=== PATIENT | male | born 1990 | race Two or more races ===

== ENCOUNTER 2017-05-17 20:54 | Emergency (ER) | payer SELFPAY ==
[2017-05-17 21:48] LABS: BASO % 1 % (0-3); EOS % 1 % (0-3); HEMATOCRIT 44.8 % (39.0-53.0); HEMOGLOBIN 15.5 g/dL (13.0-17.5); LYMPH # 2.2 x10^3/uL (1.0-4.8); LYMPH % 36 % (24-48); MEAN CORPUSCULAR HEMOGLOBIN 31 pg (25-35); MEAN CORPUSCULAR HGB CONC 35 g/dL (31-37); MEAN CORPUSCULAR VOLUME 91 fL (79-100); MONO # 0.4 x10^3/uL (0.0-1.1); MONO % 6 % (0-9); NEUT # 3.5 x10^3uL (1.8-7.7); NEUT % 57 % (31-73); PLATELET COUNT 290 x10^3/uL (140-400); RED BLOOD COUNT 4.94 x10^6/uL (4.30-5.70); RED CELL DISTRIBUTION WIDTH 13.4 % (11.5-14.5); WHITE BLOOD COUNT 6.1 x10^3/uL (4.0-11.0)
[2017-05-17 21:50] VITALS: BP 112/62
--- NOTE | 2017-05-17 22:26 | PHYS DOC ---
Past History Additional Past Medical Histor: unable to obtain due to patient not being cooperative Additional Past Surgical Histo: unable to obtain due to patient not being cooperative Additional Smoking Information: unable to obtain due to patient not being cooperative Additional Alcohol Information: unable to obtain due to patient not being cooperative Social History Narrative: unable to obtain due to patient not being cooperative Adult General Chief Complaint Chief Complaint: ALCOHOL INTOXICATION HPI HPI Hector's history was limited due to language barrier and poor cooperation. Environmental Associate was used during this encounter Patient is a 26 year old M who presents with aggressive behavior. Has a states that he had 3 beers this evening and has not used marijuana or any other recreational drugs. He states that occasionally he has these "fits". He refuses to answer most questions however the package lift operator states that he is speaking clearly, using appropriate words for the situation, and answering questions appropriately. Upon arrival he states that he would like to leave as soon as possible. He states frequently that he does not need to be in the hospital. Review of Systems Review of Systems Unable to obtain due to poor cooperation Family History Family History Unable to obtain due to poor cooperation Current Medications Current Medications Unable to obtain due to poor cooperation Allergies Allergies Unable to obtain due to poor cooperation Physical Exam Physical Exam Exam limited due to poor cooperation Constitutional: Well developed, well nourished, no acute distress, HENT: Normocephalic, atraumatic, Eyes: EOMI, conjunctiva normal, no discharge. [] Neck: Normal range of motion, no tenderness, supple, no stridor. [] Cardiovascular:Heart rate regular rhythm, Lungs & Thorax: Bilateral breath sounds clear to auscultation [] Abdomen: Bowel sounds normal, soft, no tenderness, no masses, no pulsatile masses. [] Skin: Warm, dry, no erythema, no rash. [] Bite gloria on the right biceps. Hector states that these were self-inflicted. Extremities: No tenderness, no cyanosis, no clubbing, ROM intact, no edema. [] Neurologic: Alert and oriented X 3, normal motor function, normal sensory function, no focal deficits noted. [] Psychologic: Affect normal, judgement normal, mood normal. [] Current Patient Data Vital Signs Please review nursing documentation for specifics Lab Results Laboratory Tests Test 05/17/17 21:05 White Blood Count 6.1 x10^3/uL (4.0-11.0) Red Blood Count 4.94 x10^6/uL (4.30-5.70) Hemoglobin 15.5 g/dL (13.0-17.5) Hematocrit 44.8 % (39.0-53.0) Mean Corpuscular Volume 91 fL (79-100) Mean Corpuscular Hemoglobin 31 pg (25-35) Mean Corpuscular Hemoglobin Concent 35 g/dL (31-37) Red Cell Distribution Width 13.4 % (11.5-14.5) Platelet Count 290 x10^3/uL (140-400) Neutrophils (%) (Auto) 57 % (31-73) Lymphocytes (%) (Auto) 36 % (24-48) Monocytes (%) (Auto) 6 % (0-9) Eosinophils (%) (Auto) 1 % (0-3) Basophils (%) (Auto) 1 % (0-3) Neutrophils # (Auto) 3.5 x10^3uL (1.8-7.7) Lymphocytes # (Auto) 2.2 x10^3/uL (1.0-4.8) Monocytes # (Auto) 0.4 x10^3/uL (0.0-1.1) Eosinophils # (Auto) 0.0 x10^3/uL (0.0-0.7) Basophils # (Auto) 0.0 x10^3/uL (0.0-0.2) EKG EKG Unable to obtain due to poor cooperation Radiology/Procedures Radiology/Procedures Unable to obtain due to poor cooperation Course & Med Decision Making Course & Med Decision Making Pertinent Labs and Imaging studies reviewed. (See chart for details) Environmental Associate was used during this encounter. Based on evaluations using the package lift operator it was a's mental status and improved during his stay in the emergency room. He did wish to leave AGAINST MEDICAL ADVICE prior to complete went of his evaluation. It was explained that he could have a condition that may cause him permanent disability or that may be found and treated if he was to stay and receive a complete evaluation. He expressed understanding to the package lift operator. The package lift operator states that to the best of his ability was shant understands these facts. He did sign the AMA paperwork and did leave AGAINST MEDICAL ADVICE accompanied by family Madalyn Disclaimer Dragon Disclaimer This chart was dictated in whole or in part using Voice Recognition software in a busy, high-work load, and often noisy Emergency Department environment. It may contain unintended and wholly unrecognized errors or omissions. Departure Departure: Disposition: 07 AGAINST MEDICAL ADVICE IRENE BUCHANAN MD May 17, 2017 22:26
== END 2017-05-17 22:00 | disposition left against medical advice (07) ==
LOC: ER 20:54
DX: R46.89 Other symptoms and signs involving appearance and behavior (principal); F10.129 Alcohol abuse with intoxication, unspecified
CPT/HCPCS: 36415; 85025; 99284

== ENCOUNTER 2017-09-08 14:46 | Emergency (ER) | payer SELFPAY ==
[2017-09-08] MEDS ORDERED: FLUT9.9S NS (16:55)
--- NOTE | 2017-09-08 16:55 | PHYS DOC ---
Past History Past Medical History: No Pertinent History Additional Past Medical Histor: unable to obtain due to patient not being cooperative Past Surgical History: Other Additional Past Surgical Histo: unable to obtain due to patient not being cooperative Additional Smoking Information: 1 pack a day Alcohol Use: Rarely Drug Use: Marijuana Adult General Chief Complaint Chief Complaint: FATIGUE HPI HPI Patient is a 26 year old M who presents with generalized symptoms including nasal congestion and sore throat. He describes the symptoms as been present over the past 3 or 4 days. He also feels generalized fatigue. He describes tingling in back of his head. He has no other associated symptoms. He has no other exacerbating or alleviating factors. Review of Systems Review of Systems Constitutional: Denies fever or chills [] Eyes: Denies change in visual acuity, redness, or eye pain [] HENT: Negative except history of present illness Respiratory: Denies cough or shortness of breath [] Cardiovascular: No additional information not addressed in HPI [] GI: Denies abdominal pain, nausea, vomiting, bloody stools or diarrhea [] : Denies dysuria or hematuria [] Musculoskeletal: Denies back pain or joint pain [] Integument: Denies rash or skin lesions [] Neurologic: Denies headache, focal weakness or sensory changes [] Endocrine: Denies polyuria or polydipsia [] All other systems were reviewed and found to be within normal limits, except as documented in this note. Family History Family History Noncontributory Current Medications Current Medications No current medications Physical Exam Physical Exam Constitutional: Well developed, well nourished, no acute distress, non-toxic appearance. [] HENT: Normocephalic, atraumatic, mild to moderate nasal erythema and edema mild pharyngeal erythema Eyes: EOMI, conjunctiva normal, no discharge. [] Neck: Normal range of motion, no tenderness, supple, no stridor. [] Cardiovascular:Heart rate regular rhythm, no murmur [] Lungs & Thorax: Bilateral breath sounds clear to auscultation [] Abdomen: Bowel sounds normal, soft, no tenderness, no masses, no pulsatile masses. [] Skin: Warm, dry, no erythema, no rash. [] Extremities: No tenderness, no cyanosis, no clubbing, ROM intact, no edema. [] Neurologic: Alert and oriented X 3, normal motor function, normal sensory function, no focal deficits noted. [] Psychologic: Affect normal, judgement normal, mood normal. [] Current Patient Data Vital Signs Vital Signs Date Time Temp Pulse Resp B/P (MAP) Pulse Ox O2 Delivery O2 Flow Rate FiO2 09/08/17 15:03 98.5 110 20 99 Room Air EKG EKG [] Radiology/Procedures Radiology/Procedures [] Course & Med Decision Making Course & Med Decision Making Pertinent Labs and Imaging studies reviewed. (See chart for details) [] Dragon Disclaimer Dragon Disclaimer This electronic medical record was generated, in whole or in part, using a voice recognition dictation system. Departure Departure: Impression: Primary Impression: Upper respiratory infection, viral Disposition: HOME, SELF-CARE Condition: STABLE Referrals: PCP,ONEYDA (PCP) Patient Instructions: Upper Respiratory Infection, Adult Additional Instructions: Johnathan was seen in the emergency department for generalized symptoms. No emergency medical condition was found on history or physical exam. He is unable symptoms most consistent with a viral infection likely a respiratory infection. Is advised to use nasal saline rinses regularly and was given a prescription for Flonase nose spray. He is also advised consider using lidocaine patches to manage his symptoms. He is advised follow-up with his primary care doctor as needed for further management. Scripts Fluticasone Propionate (Flonase Allergy Relief) 9.9 Ml Thida.susp 1 SPRAYS NS BID for 7 Days, BOTTLE Prov: IRENE BUCHANAN MD 09/08/17 IRENE BUCHANAN MD Sep 08, 2017 16:55
[2017-09-08 17:02] VITALS: BP 137/90
== END 2017-09-08 17:03 | disposition home or self-care (01) ==
LOC: ER 14:46
DX: J06.9 Acute upper respiratory infection, unspecified (principal); B97.89 Other viral agents as the cause of diseases classified elsewhere; R53.83 Other fatigue; F17.210 Nicotine dependence, cigarettes, uncomplicated; F12.10 Cannabis abuse, uncomplicated
CPT/HCPCS: 99283

== ENCOUNTER 2018-01-13 11:14 | Emergency (ER) | payer SELFPAY ==
[~2018-01-13] VITALS: Ht 162.6 cm; Wt 53.1 kg
[~2018-01-13 11:14] MED LIST: FLUT9.9S NS
--- NOTE | 2018-01-13 11:43 | PHYS DOC ---
Past History Past Medical History: No Pertinent History Additional Past Medical Histor: unable to obtain due to patient not being cooperative Past Surgical History: Other Additional Past Surgical Histo: unable to obtain due to patient not being cooperative Alcohol Use: Rarely Drug Use: Marijuana Adult General Chief Complaint Chief Complaint: CHEST WALL PAIN [facility] HPI 27-year-old male presents with 3 day history of chest wall pain. The patient speaks German as a second language, so his understanding is somewhat limited. He tells me that the pain started in his left lateral chest on Saturday and today both of his lateral pectoral areas are sore. 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 He is worked there for about a year. It is unclear if he didn't anything extra strenuous on Saturday. He feels as though his left pec is slightly swollen. Both of his pectoralis muscles are tender to the touch. Patient denies shortness of breath or diaphoresis. Review of Systems Review of Systems Constitutional: Denies fever or chills [] Eyes: Denies change in visual acuity, redness, or eye pain [] HENT: Denies nasal congestion or sore throat [] Respiratory: Denies cough or shortness of breath [] Cardiovascular: No additional information not addressed in HPI [] GI: Denies abdominal pain, nausea, vomiting, bloody stools or diarrhea [] : Denies dysuria or hematuria [] Musculoskeletal: chest muscle pain [] Integument: Denies rash or skin lesions [] Neurologic: Denies headache, focal weakness or sensory changes [] Endocrine: Denies polyuria or polydipsia [] All other systems were reviewed and found to be within normal limits, except as documented in this note. Allergies Allergies Allergies Coded Allergies Type Severity Reaction Last Updated Verified aspirin Allergy Unknown 09/08/17 Yes Physical Exam Physical Exam Constitutional: Well developed, well nourished, no acute distress, non-toxic appearance. [] HENT: Normocephalic, atraumatic, bilateral external ears normal, oropharynx moist, no oral exudates, nose normal. [] Eyes: PERRLA, EOMI, conjunctiva normal, no discharge. [] Neck: Normal range of motion, no tenderness, supple, no stridor. [] Cardiovascular:Heart rate regular rhythm, no murmur [] Lungs & Thorax: Bilateral breath sounds clear to auscultation, tenderness to palpation of the lateral aspect of both pectoralis muscles [] Abdomen: Bowel sounds normal, soft, no tenderness, no masses, no pulsatile masses. [] Skin: Warm, dry, no erythema, no rash. [] Back: No tenderness, no CVA tenderness. [] Extremities: No tenderness, no cyanosis, no clubbing, ROM intact, no edema. [] Neurologic: Alert and oriented X 3, normal motor function, normal sensory function, no focal deficits noted. [] Psychologic: Affect normal, judgement normal, mood normal. [] EKG EKG Normal sinus rhythm, rate 100, normal axis, no ST elevations or depressions.[] Radiology/Procedures Radiology/Procedures EXAM: Chest, 2 views. HISTORY: Chest pain. COMPARISON: None. FINDINGS: Frontal and lateral views of the chest are obtained. There is no infiltrate, effusion or pneumothorax. The heart is normal in size. IMPRESSION: No acute pulmonary finding. Electronically signed by: Elizabeth Mary MD (01/13/2018 12:02 PM) [facility] DICTATED AND SIGNED BY: ELIZABETH AMRY MD DATE: 01/13/18 1202[] Course & Med Decision Making Course & Med Decision Making Pertinent Labs and Imaging studies reviewed. (See chart for details) The patient's EKG is unremarkable. His chest x-ray is unremarkable. Based on my history and physical exam, I believe the patient has strained pectoralis muscles , worse on the left. I have given him 60 mg of Toradol IM. The patient did have improvement of his pain in the ED. 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 [] Dragon Disclaimer Dragon Disclaimer This electronic medical record was generated, in whole or in part, using a voice recognition dictation system. Departure Departure: Referrals: PCP,NO (PCP) Scripts Naproxen (NAPROXEN) 500 Mg Tablet 1 TAB PO BID PRN for PAIN MDD 2 tabs for 7 Days, #14 TAB 1 Refill Prov: AZAEL SNELL DO 01/13/18 AZAEL SNELL DO January 13, 2018 11:43
--- NOTE | 2018-01-13 11:49 | EKG ---
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
--- NOTE | 2018-01-13 12:06 | RAD ---
EXAM: Chest, 2 views. HISTORY: Chest pain. COMPARISON: None. FINDINGS: Frontal and lateral views of the chest are obtained. There is no infiltrate, effusion or pneumothorax. The heart is normal in size. IMPRESSION: No acute pulmonary finding. Electronically signed by: Elizabeth Mary MD (01/13/2018 12:02 PM) [place] [id number]
[2018-01-13] MEDS ORDERED: KETOROLAC 60 MG/2 ML VIAL. IM ONE (12:30)
[2018-01-13] MEDS ORDERED: NAPR-514 PO (12:36)
[2018-01-13 12:41] VITALS: BP 112/71
== END 2018-01-13 12:43 | disposition home or self-care (01) ==
LOC: ER 11:14
DX: R07.89 Other chest pain (principal); F12.10 Cannabis abuse, uncomplicated; Z88.6 Allergy status to analgesic agent
CPT/HCPCS: 71046; 93005; 96372; 99284; J1885

== ENCOUNTER 2018-09-11 20:50 | Emergency (ER) | payer SELFPAY ==
[~2018-09-11] VITALS: Ht 172.7 cm; Wt 59.1 kg
[~2018-09-11 20:50] MED LIST changes: +NAPR-514 PO
[2018-09-11] MEDS ORDERED: IV NORMAL SALINE 1,000ML 1,000 ML IV ONE (21:00)
[2018-09-11 21:15] LABS: BASO % 1 % (0-3); EOS # 0.1 x10^3/uL (0.0-0.7); EOS % 1 % (0-3); HEMATOCRIT 47.6 % (39.0-53.0); HEMOGLOBIN 16.1 g/dL (13.0-17.5); LYMPH # 2.4 x10^3/uL (1.0-4.8); LYMPH % 33 % (24-48); MEAN CORPUSCULAR HEMOGLOBIN 30 pg (25-35); MEAN CORPUSCULAR HGB CONC 34 g/dL (31-37); MEAN CORPUSCULAR VOLUME 89 fL (79-100); MONO # 0.7 x10^3/uL (0.0-1.1); MONO % 9 % (0-9); NEUT # 4.1 x10^3uL (1.8-7.7); NEUT % 56 % (31-73); PLATELET COUNT 398 x10^3/uL (140-400); RED BLOOD COUNT 5.34 x10^6/uL (4.30-5.70); RED CELL DISTRIBUTION WIDTH 13.1 % (11.5-14.5); WHITE BLOOD COUNT 7.3 x10^3/uL (4.0-11.0)
[2018-09-11] MEDS ORDERED: LORazepam 2 MG/ML VIAL IV ONE (21:15)
--- NOTE | 2018-09-11 21:28 | PHYS DOC ---
Past History Past Medical History: No Pertinent History Past Surgical History: No Surgical History Smoking: Greater than 1 pack/day Alcohol Use: Occasionally Drug Use: None Adult General Chief Complaint Chief Complaint: CHEST WALL PAIN HPI HPI Patient is a 27 YO M that presents with a five day history of left-sided chest pain and anxiety. Patient reports that the pain is localized, gets worse on palpation, is episodic, and is about a 5/10. He reports some dizziness along with these episodes that resolve by themselves. He has increased stressors in his life recently, he is unemployed and has a new child. He reports smoking a pack of cigarettes a day but denies recreational drug use. Denies calf tenderness or increased pain on taking a deep breath. Denies radiation of pain to the back. Denies nausea, vomiting, or SOB. Denies trauma. Denies history of PE/DVT. Denies other cardiac risk factors. Review of Systems Review of Systems Constitutional: Denies fever or chills [] Eyes: Denies change in visual acuity, redness, or eye pain [] HENT: Denies nasal congestion or sore throat [] Respiratory: Denies cough or shortness of breath [] Cardiovascular: Reports chest pain and heart racing GI: Denies abdominal pain, nausea, vomiting, or diarrhea [] Musculoskeletal: Denies back pain or joint pain, reports tenderness to palpation of his left chest Neurologic: Denies headache, focal weakness or sensory changes [] Complete systems were reviewed and found to be within normal limits, except as documented in this note. Current Medications Current Medications Current Medications Medications (Trade) Dose Ordered Sig/Angela Start Time Stop Time Status Last Admin Dose Admin Sodium Chloride 1,000 ml @ 1,000 mls/hr 1X ONCE 09/11/18 21:00 09/11/18 21:59 09/11/18 21:08 1,000 MLS/HR Allergies Allergies Allergies Coded Allergies Type Severity Reaction Last Updated Verified aspirin Allergy Intermediate 09/11/18 Yes Physical Exam Physical Exam Constitutional: Well developed, well nourished, non-toxic appearance, anxious. [ ] HENT: Normocephalic, atraumatic, nose normal. [] Eyes: Conjunctiva normal, no discharge. [] Neck: Normal range of motion, no tenderness. [] Cardiovascular: Tachycardic, tenderness to palpation of the left chest, no murmurs. [] Lungs & Thorax: Bilateral breath sounds clear to auscultation [] Abdomen: Soft, no tenderness. [] Skin: Warm, dry, no erythema, no rash. [] Extremities: No tenderness, ROM intact, no edema. [] Neurologic: Alert and oriented X 3, no focal deficits noted. [] Psychologic: Affect normal, judgement normal, mood normal. [] Current Patient Data Vital Signs Vital Signs Date Time Temp Pulse Resp B/P (MAP) Pulse Ox O2 Delivery O2 Flow Rate FiO2 09/11/18 20:50 98.4 118 21 100 Room Air EKG EKG @2057 sinus tachycardia at 123 bpm, left atrial abnormality, NO ST elevation Radiology/Procedures Radiology/Procedures PROCEDURE: CHEST PA & LATERAL CHEST PA LATERAL History: Chest pain. Comparison: January 13, 2018 Heart size: Within normal limits. Amy/mediastinum: Within normal limits Lungs: No focal airspace consolidation. Pleura: No evidence of pleural effusion. Pneumothorax: None visualized Bones: Regional skeleton appears grossly intact. Miscellaneous: None Impression: No acute radiographic findings. Electronically signed by: Jose Patel MD (09/11/2018 10:26 PM) [facility] Course & Med Decision Making Course & Med Decision Making Patient with low cardiac risk factors presents with right sided chest pain. Patient appears anxious. Reports increased life stressors. Also complains of dizziness. Neurologically intact. Denies SI/HI. EKG with sinus tachycardia. Labs obtained and posted to chart. Troponin WNL. UDS positive for amphetamines- unclear as patient denies drug abuse. HEART score 0. D-dimer also WNL. CXR without acute process. Anxiety addressed with interval improvement of symptoms. Patient stable for discharge with outpatient follow-up with PCP. Discussed findings and plan with patient and friend, who acknowledge understanding and agreement. Dragon Disclaimer Dragon Disclaimer This electronic medical record was generated, in whole or in part, using a voice recognition dictation system. Departure Departure: Impression: Primary Impression: Atypical chest pain Additional Impression: Anxiety Disposition: 01 HOME, SELF-CARE Condition: STABLE Referrals: PCP,NO (PCP) Patient Instructions: Anxiety and Panic Attacks, [id number], Chest Pain ( Nonspecific), Aagc-im-Stms Scripts Lorazepam (LORAZEPAM) 0.5 Mg Tablet 1 TAB PO TID PRN for ANXIETY, #10 TAB Prov: JOSE KRAUS DO 09/11/18 Problem Qualifiers JOSE KRAUS DO Sep 11, 2018 21:28
--- NOTE | 2018-09-11 21:31 | EKG ---
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
[2018-09-11 21:38] LABS: ALBUMIN 4.4 g/dL (3.4-5.0); ALBUMIN/GLOBULIN RATIO 1.1 (1.0-1.7); CALCIUM 9.4 mg/dL (8.5-10.1); CREATININE 0.9 mg/dL (0.7-1.3); MAGNESIUM 2.2 mg/dL (1.8-2.4); POTASSIUM 3.6 mmol/L (3.5-5.1); TOTAL BILIRUBIN 0.3 mg/dL (0.2-1.0); TOTAL PROTEIN 8.5 g/dL (6.4-8.2)
[2018-09-11 21:45] LABS: BARBITURATES NEG (NEG); BENZODIAZEPINES NEG (NEG); CANNABINOIDS NEG (NEG); COCAINE NEG (NEG); METHADONE NEG (NEG); OPIATES NEG (NEG); PHENCYCLIDINE NEG (NEG)
[2018-09-11 21:46] LABS: AMPHETAMINE/METHAMPHETAMINE POS (NEG)
[2018-09-11 21:52] LABS: BILIRUBIN,URINE NEG (NEG); CLARITY,URINE HAZY; COLOR,URINE YELLOW; GLUCOSE,URINE NEG (NEG)
[2018-09-11 21:53] LABS: AMORPHOUS SEDIMENT,UR PRESENT /HPF; BACTERIA,URINE 0 /HPF (0-FEW); NITRITE,URINE NEG (NEG); RBC,URINE OCC /HPF (0-2); SQUAMOUS EPITHELIAL CELL,UR OCC /LPF; UROBILINOGEN,URINE 1 mg/dL (0.2 mg/dL); WBC,URINE 0 /HPF (0-4)
[2018-09-11 22:00] VITALS: BP 112/53
[2018-09-11] MEDS ORDERED: LORA0.5T PO (22:20)
--- NOTE | 2018-09-11 22:31 | RAD ---
CHEST PA LATERAL History: Chest pain. Comparison: January 13, 2018 Heart size: Within normal limits. Amy/mediastinum: Within normal limits Lungs: No focal airspace consolidation. Pleura: No evidence of pleural effusion. Pneumothorax: None visualized Bones: Regional skeleton appears grossly intact. Miscellaneous: None Impression: No acute radiographic findings. Electronically signed by: Jose Patel MD (09/11/2018 10:26 PM) [facility]
--- NOTE | 2018-09-12 07:16 | EKG ---
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
== END 2018-09-11 22:25 | disposition home or self-care (01) ==
LOC: ER 20:50
DX: R07.89 Other chest pain (principal); F41.9 Anxiety disorder, unspecified; R42 Dizziness and giddiness; F17.200 Nicotine dependence, unspecified, uncomplicated; Z88.6 Allergy status to analgesic agent
CPT/HCPCS: 36415; 71046; 80053; 80307; 81001; 82553; 83690; 83735; 84484; 85025; 85379; 93005; 96374; 99284; J2060; J7030